=== PATIENT | female | born 1975 | race Caucasian/White ===

== ENCOUNTER 2018-09-26 17:45 | Emergency (ER) | payer OTHER ==
[~2018-09-26] VITALS: Ht 160 cm; Wt 108.0 kg
[~2018-09-26 17:45] MED LIST: AZIT250T PO; BENZ100C PO; PROAIR HFA8.5 GM INH
[2018-09-26 17:55] VITALS: BP 137/89
[2018-09-26] MEDS ORDERED: DIPHTH,PERTUSS(ACELL),TET TOX 0.5 ML DISP.SYRIN. VAX IM ONE (18:15)
[2018-09-26] MEDS ORDERED: HYDROcodone/APAP 5/325MG 1 TAB TABLET PO ONE (18:15)
--- NOTE | 2018-09-26 18:38 | RAD ---
EXAM: Left hand, 3 views. HISTORY: Laceration. COMPARISON: None. FINDINGS: 3 views of the left hand are obtained. There is no fracture, dislocation or subluxation. No radiodense foreign body is seen. IMPRESSION: No acute osseous finding or radiodense foreign body. Electronically signed by: Cathie Heredia MD (09/26/2018 6:35 PM) [facility]
--- NOTE | 2018-09-26 18:41 | PHYS DOC ---
Past Medical History Past Medical History: GERD Past Surgical History: Appendectomy, Cholecystectomy, Hysterectomy Alcohol Use: Occasionally Drug Use: None Adult General Chief Complaint Chief Complaint: LACERATION/AVULSION HPI HPI Patient is a 42 year old female who presents with cutting her left middle finger at the very tip today at 1500 while she was at work. 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 Patient states that she washed it out at work and then covered it with a cotton ball Band-Aid. She rates her pain 8 out of 10. Patient states she does not know when her last tetanus shot is. Patient states the pain does radiate up her arm. Patient states she didn't take any medication for pain. Patient is allergic to sulfa, penicillin, Zosyn. She takes Nexium, cohosh, B12 daily. Review of Systems Review of Systems Constitutional: Denies fever or chills [] Eyes: Denies change in visual acuity, redness, or eye pain [] HENT: Denies nasal congestion or sore throat [] Respiratory: Denies cough or shortness of breath [] Cardiovascular: No additional information not addressed in HPI [] GI: Denies abdominal pain, nausea, vomiting, bloody stools or diarrhea [] : Denies dysuria or hematuria [] Musculoskeletal: Denies back pain or joint pain [] Integument: 1 cm laceration to the left finger tip. Denies rash or skin lesions [] Neurologic: Denies headache, focal weakness or sensory changes [] Endocrine: Denies polyuria or polydipsia [] All other systems were reviewed and found to be within normal limits, except as documented in this note. Current Medications Current Medications Current Medications Medications (Trade) Dose Ordered Sig/Jim Start Time Stop Time Status Last Admin Dose Admin Acetaminophen/ Hydrocodone Bitart (Lortab 5/325) 1 tab 1X ONCE 09/26/18 18:15 09/26/18 18:16 DC 09/26/18 18:37 1 TAB Diphtheria/ Tetanus/Acell Pertussis (Boostrix) 0.5 ml ONCE ONCE 09/26/18 18:15 09/26/18 18:16 DC 09/26/18 18:38 0.5 ML Allergies Allergies Allergies Coded Allergies Type Severity Reaction Last Updated Verified Sulfa (Sulfonamide Antibiotics) Allergy Intermediate 11/19/16 Yes piperacillin Allergy Intermediate 11/19/16 Yes tazobactam Allergy Intermediate 11/19/16 Yes Uncoded Allergies Type Severity Reaction Last Updated Verified unknown anesthetic Allergy Severe ANAPHYLAXIS 11/19/16 Physical Exam Physical Exam Constitutional: Well developed, well nourished, no acute distress, non-toxic appearance. [] HENT: Normocephalic, atraumatic, bilateral external ears normal, oropharynx moist, no oral exudates, nose normal. [] Eyes: PERRLA, EOMI, conjunctiva normal, no discharge. [] Neck: Normal range of motion, no tenderness, supple, no stridor. [] Cardiovascular:Heart rate regular rhythm, no murmur [] Lungs & Thorax: Bilateral breath sounds clear to auscultation [] Abdomen: Bowel sounds normal, soft, no tenderness, no masses, no pulsatile masses. [] Skin: 1 cm laceration to the left finger tip. Edges are together and approximated. Bleeding controlled. Warm, dry, no erythema, no rash. [] Back: No tenderness, no CVA tenderness. [] Extremities: No tenderness, no cyanosis, no clubbing, ROM intact, no edema. [] Neurologic: Alert and oriented X 3, normal motor function, normal sensory function, no focal deficits noted. [] Psychologic: Affect normal, judgement normal, mood normal. [] Current Patient Data Vital Signs Vital Signs Date Time Temp Pulse Resp B/P (MAP) Pulse Ox O2 Delivery O2 Flow Rate FiO2 09/26/18 17:55 97.9 95 18 137/89 (105) 99 Room Air 97.9 EKG EKG [] Radiology/Procedures Radiology/Procedures Left hand Impressions: [facility] [address] [place], [place] [id number] IMAGING REPORT Signed PATIENT: RADHA RODRIGUEZ ACCOUNT: [id number] : 1975 LOCATION: ER AGE: 42 SEX: F EXAM STATUS: REG ER ORD. PHYSICIAN: DANIELA LANCASTER DICER OPERATOR REASON: middle finger laceration PROCEDURE: HAND LEFT 3V EXAM: Left hand, 3 views. HISTORY: Laceration. COMPARISON: None. FINDINGS: 3 views of the left hand are obtained. There is no fracture, dislocation or subluxation. No radiodense foreign body is seen. IMPRESSION: No acute osseous finding or radiodense foreign body. Electronically signed by: Cathie Heredia MD (09/26/2018 6:35 PM) [facility] DICTATED and SIGNED BY: CATHIE HEREDIA MD DATE: 09/26/18 1834 Course & Med Decision Making Course & Med Decision Making Patient is a 42 year old female who presents with cutting her left middle finger at the very tip today at 1500 while she was at work. 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 Patient states that she washed it out at work and then covered it with a cotton ball Band-Aid. She rates her pain 8 out of 10. Patient states she does not know when her last tetanus shot is. Patient states the pain does radiate up her arm. Patient states she didn't take any medication for pain. Patient is allergic to sulfa, penicillin, Zosyn. She takes Nexium, cohosh, B12 daily. Bleeding is contained. The cut is about 1 cm long in the skin is approximated together. The cut does not look deeper looks very superficial as was not able to pull the skin apart easily. No deformity to the finger, no redness or foreign body. She can bend the finger but it is painful. Bleeding is controlled. Finger is cleaned and scrubbed with Betadine. Finger tip will get Steri-Strips and covered with a dressing. Xray shows No acute osseous finding or radiodense foreign body. Patients to watch for any signs of infection she needs to come back within the next 48 hours or so for wound check. Patient is educated on signs of infection. Alert and oriented. Radial pulse present. Cap refill present. Dragon Disclaimer Dragon Disclaimer This electronic medical record was generated, in whole or in part, using a voice recognition dictation system. Departure Departure Impression: Primary Impression: Laceration Disposition: 01 HOME, SELF-CARE Condition: STABLE Referrals: NO PCP (PCP) Patient Instructions: Fingertip Laceration, Laceration Care, Adult Additional Instructions: Follow up in the ED or with your primary care in 48 hours to check for infection. Take Ibuprofen for pain. DANIELA LANCASTER DICER OPERATOR Sep 26, 2018 18:41
[2018-09-26] MEDS ORDERED: CEPH-264 PO (19:00)
--- NOTE | 2018-09-26 19:01 | PHYS DOC ---
Past Medical History Past Medical History: GERD Past Surgical History: Appendectomy, Cholecystectomy, Hysterectomy Alcohol Use: Occasionally Drug Use: None Adult General Chief Complaint Chief Complaint: LACERATION/AVULSION HPI HPI Patient is a 42 year old [f__sex] who presents with [] Review of Systems Review of Systems Constitutional: Denies fever or chills [] Eyes: Denies change in visual acuity, redness, or eye pain [] HENT: Denies nasal congestion or sore throat [] Respiratory: Denies cough or shortness of breath [] Cardiovascular: No additional information not addressed in HPI [] GI: Denies abdominal pain, nausea, vomiting, bloody stools or diarrhea [] : Denies dysuria or hematuria [] Musculoskeletal: Denies back pain or joint pain [] Integument: Denies rash or skin lesions [] Neurologic: Denies headache, focal weakness or sensory changes [] Endocrine: Denies polyuria or polydipsia [] All other systems were reviewed and found to be within normal limits, except as documented in this note. Current Medications Current Medications Current Medications Medications (Trade) Dose Ordered Sig/Jim Start Time Stop Time Status Last Admin Dose Admin Acetaminophen/ Hydrocodone Bitart (Lortab 5/325) 1 tab 1X ONCE 09/26/18 18:15 09/26/18 18:16 DC 09/26/18 18:37 1 TAB Diphtheria/ Tetanus/Acell Pertussis (Boostrix) 0.5 ml ONCE ONCE 09/26/18 18:15 09/26/18 18:16 DC 09/26/18 18:38 0.5 ML Allergies Allergies Allergies Coded Allergies Type Severity Reaction Last Updated Verified Sulfa (Sulfonamide Antibiotics) Allergy Intermediate 11/19/16 Yes piperacillin Allergy Intermediate 11/19/16 Yes tazobactam Allergy Intermediate 11/19/16 Yes Uncoded Allergies Type Severity Reaction Last Updated Verified unknown anesthetic Allergy Severe ANAPHYLAXIS 11/19/16 Physical Exam Physical Exam Constitutional: Well developed, well nourished, no acute distress, non-toxic appearance. [] HENT: Normocephalic, atraumatic, bilateral external ears normal, oropharynx moist, no oral exudates, nose normal. [] Eyes: PERRLA, EOMI, conjunctiva normal, no discharge. [] Neck: Normal range of motion, no tenderness, supple, no stridor. [] Cardiovascular:Heart rate regular rhythm, no murmur [] Lungs & Thorax: Bilateral breath sounds clear to auscultation [] Abdomen: Bowel sounds normal, soft, no tenderness, no masses, no pulsatile masses. [] Skin: Warm, dry, no erythema, no rash. [] Back: No tenderness, no CVA tenderness. [] Extremities: No tenderness, no cyanosis, no clubbing, ROM intact, no edema. [] Neurologic: Alert and oriented X 3, normal motor function, normal sensory function, no focal deficits noted. [] Psychologic: Affect normal, judgement normal, mood normal. [] Current Patient Data Vital Signs Vital Signs Date Time Temp Pulse Resp B/P (MAP) Pulse Ox O2 Delivery O2 Flow Rate FiO2 09/26/18 17:55 97.9 95 18 137/89 (105) 99 Room Air 97.9 EKG EKG [] Radiology/Procedures Radiology/Procedures [] Course & Med Decision Making Course & Med Decision Making Pertinent Labs and Imaging studies reviewed. (See chart for details) [] Dragon Disclaimer Dragon Disclaimer This electronic medical record was generated, in whole or in part, using a voice recognition dictation system. Departure Departure Impression: Primary Impression: Laceration Disposition: 01 HOME, SELF-CARE Condition: STABLE Referrals: NO PCP (PCP) Patient Instructions: Laceration Care, Adult, Fingertip Laceration Additional Instructions: Follow up in the ED or with your primary care in 48 hours to check for infection. Take Ibuprofen for pain. Scripts Cephalexin (KEFLEX) 500 Mg Capsule 500 MG PO BID for 7 Days, #14 CAP Prov: DANIELA LANCASTER APRN 09/26/18 DANIELA LANCASTER APRN Sep 26, 2018 19:01
== END 2018-09-26 19:10 | disposition home or self-care (01) ==
LOC: ER 17:45
DX: S61.213A Laceration without foreign body of left middle finger without damage to nail, initial encounter (principal); K21.9 Gastro-esophageal reflux disease without esophagitis; Z90.49 Acquired absence of other specified parts of digestive tract; Z90.710 Acquired absence of both cervix and uterus; Z90.89 Acquired absence of other organs; Z88.2 Allergy status to sulfonamides; Z88.1 Allergy status to other antibiotic agents; W26.8XXA Contact with other sharp object(s), not elsewhere classified, initial encounter; Y93.89 Activity, other specified; Y92.89 Other specified places as the place of occurrence of the external cause; Y99.0 Civilian activity done for income or pay
CPT/HCPCS: 73130; 90471; 90715; 99284